=== PATIENT | female | born 1995 | race Caucasian/White ===

== ENCOUNTER → 2023-01-18 | Outpatient (CLI) | payer OTHER ==
[2023-01-18 13:57] LABS: HEMATOCRIT 34.5 % (36.0-47.0); MEAN CORPUSCULAR HEMOGLOBIN 29.5 pg (27.0-33.0); MEAN CORPUSCULAR HGB CONC 31.9 g/dl (32.0-36.5); MEAN CORPUSCULAR VOLUME 92.5 fl (80.0-96.0); PLATELET COUNT, AUTOMATED 216 10^3/uL (150-450); RED BLOOD COUNT 3.73 10^6/uL (4.00-5.40); WHITE BLOOD COUNT 9.3 10^3/uL (4.0-10.0)
[2023-01-18 15:54] LABS: GC DNA AMPLIFICATION NEGATIVE (NEGATIVE)
== END ==
LOC: M PLALAB 10:18
PROVIDERS: ATTEND Advanced Practice Midwife
DX: Z34.82 Encounter for supervision of other normal pregnancy, second trimester (principal)

== ENCOUNTER → 2023-01-30 | Outpatient (CLI) | payer OTHER | LOC: M WHC 08:23 → EDUNIT# 09:00 | PROVIDERS: ATTEND Advanced Practice Midwife | DX: Z34.82 Encounter for supervision of other normal pregnancy, second trimester (principal); Z3A.29 29 weeks gestation of pregnancy ==

== ENCOUNTER 2023-02-28 15:36 | Outpatient (CLI) | payer OTHER ==
[~2023-02-28] VITALS: Ht 162.6 cm; Wt 100.0 kg
[2023-02-28] MEDS ORDERED: ACET-683 PO (16:05)
[2023-02-28] MEDS ORDERED: PRENTAB9 PO (16:05)
[2023-02-28] MEDS ORDERED: PROZ20CA11 PO (16:06)
[2023-02-28 16:08] VITALS: BP 139/91
[2023-02-28] MEDS ORDERED: HOME MED LIST COMPLETE! XX SCH (16:10)
[2023-02-28 16:26] VITALS: BP 131/81
[2023-02-28] MEDS ORDERED: LACTATED RINGER'S 1000 ML IV STA (16:36)
[2023-02-28] MEDS ORDERED: LR 1,000 ML IV SCH (16:40)
[2023-02-28 17:34] LABS: HEMATOCRIT 33.6 % (36.0-47.0); HEMOGLOBIN 10.8 g/dl (12.0-15.5); MEAN CORPUSCULAR HEMOGLOBIN 27.9 pg (27.0-33.0); MEAN CORPUSCULAR HGB CONC 32.1 g/dl (32.0-36.5); MEAN CORPUSCULAR VOLUME 86.8 fl (80.0-96.0); PLATELET COUNT, AUTOMATED 229 10^3/uL (150-450); RED BLOOD COUNT 3.87 10^6/uL (4.00-5.40); WHITE BLOOD COUNT 8.6 10^3/uL (4.0-10.0)
[2023-02-28 18:02] LABS: ALBUMIN 2.7 G/DL (3.2-5.2); ALKALINE PHOSPHATASE 168 U/L (46-116); ALT/SGPT 25 U/L (7.0-40); AST/SGOT 16 U/L (<34); BILIRUBIN,TOTAL 0.3 MG/DL (0.3-1.2); BLOOD UREA NITROGEN 7 MG/DL (9-23); CALCIUM LEVEL 8.8 MG/DL (8.5-10.1); CARBON DIOXIDE LEVEL 22 MMOL/L (20-31); CHLORIDE LEVEL 105 MMOL/L (98-107); CREATININE FOR GFR 0.55 MG/DL (0.55-1.30); GLOMERULAR FILTRATION RATE > 60.0 (>60); GLUCOSE, FASTING 60 MG/DL (60-100); POTASSIUM SERUM 4.1 MMOL/L (3.5-5.1); SODIUM LEVEL 136 MMOL/L (136-145); TOTAL PROTEIN 6.4 G/DL (5.7-8.2)
[2023-02-28] MEDS ORDERED: ACETAMINOPHEN 500 MG TAB PO ONE (18:05)
== END 2023-02-28 18:25 | disposition home or self-care (01) ==
LOC: M LDO 15:36
PROVIDERS: ATTEND Specialist
DX: O26.893 Other specified pregnancy related conditions, third trimester (principal); R19.7 Diarrhea, unspecified; Z3A.33 33 weeks gestation of pregnancy
CPT/HCPCS: 59025; 80053; 85027; 96360; G0463

== ENCOUNTER → 2023-03-03 | Outpatient (CLI) | payer OTHER ==
[~2023-03-03] MED LIST: ACET-683 PO; PRENTAB9 PO; PROZ20CA11 PO
== END ==
LOC: M WHC 13:09
PROVIDERS: ATTEND Advanced Practice Midwife
DX: O99.213 Obesity complicating pregnancy, third trimester (principal); Z3A.34 34 weeks gestation of pregnancy

== ENCOUNTER 2023-03-21 18:43 | Outpatient (CLI) | payer OTHER ==
[~2023-03-21] VITALS: Ht 162.6 cm; Wt 99.5 kg
[2023-03-21 19:03] VITALS: BP 118/60
[2023-03-21 20:04] LABS: APPEARANCE, URINE HAZY (CLEAR); BACTERIA, URINE AUTO NEGATIVE (NEGATIVE); BILIRUBIN, URINE AUTO NEGATIVE (NEGATIVE); BLOOD, URINE BLOOD NEGATIVE (NEGATIVE); COLOR, URINE YELLOW (YELLOW); GLUCOSE, URINE (UA) AUTO NEGATIVE (NEGATIVE); KETONE, URINE AUTO TRACE mg/dL (NEGATIVE); LEUKOCYTE ESTERASE, URINE AUTO 1+ (NEGATIVE); MUCUS, URINE SMALL (NEGATIVE); NITRITE, URINE AUTO NEGATIVE (NEGATIVE); PROTEIN, URINE AUTO 1+ mg/dL (NEGATIVE); RBC, URINE AUTO 1 /HPF (0-3); SPECIFIC GRAVITY URINE AUTO 1.025 (1.002-1.035); SQUAMOUS EPITHELIAL CELL UR AU 4 /HPF (0-6); UROBILINOGEN, URINE AUTO 0.2 mg/dL (0.0-2.0); WBC, URINE AUTO 3 /HPF (0-3)
[2023-03-21] MEDS ORDERED: ACETAMINOPHEN 500 MG TAB PO ONE (21:20)
== END 2023-03-21 22:40 | disposition home or self-care (01) ==
LOC: M LDO 18:43
PROVIDERS: ATTEND Obstetrics & Gynecology
DX: O47.03 False labor before 37 completed weeks of gestation, third trimester (principal); O99.343 Other mental disorders complicating pregnancy, third trimester; F32.A Depression, unspecified; F43.10 Post-traumatic stress disorder, unspecified; Z88.8 Allergy status to other drugs, medicaments and biological substances; Z3A.36 36 weeks gestation of pregnancy
CPT/HCPCS: 59025; 76815; 76820; 81001; 87086; G0463

== ENCOUNTER → 2023-03-23 | Outpatient (REF) | payer SELFPAY ==
[~2023-03-23] MED LIST changes: +IBUP80TA PO
== END ==
LOC: M PLALAB 07:53
PROVIDERS: ATTEND Obstetrics & Gynecology
DX: Z34.93 Encounter for supervision of normal pregnancy, unspecified, third trimester (principal)

== ENCOUNTER 2023-04-08 15:57 | Inpatient (IN) | payer OTHER ==
[~2023-04-08] VITALS: Ht 162.6 cm; Wt 100.0 kg
[2023-04-08] VITALS (15 sets, daily range): BP systolic 120–161; BP diastolic 71–102
[~2023-04-08 15:57] MED LIST changes: -IBUP80TA PO
[2023-04-08] MEDS ORDERED: HOME MED LIST COMPLETE! XX SCH (16:20)
[2023-04-08] MEDS ORDERED: OXYTOCIN DRIP 30 UNITS in IV 1 EA IV SCH (18:20)
[2023-04-08] MEDS ORDERED: METHYLERGONOVINE MALEATE 0.2MG/ML 1ML VIAL IM PRN (18:20)
[2023-04-08] MEDS ORDERED: LR 1,000 ML IV SCH (18:20)
[2023-04-08] MEDS ORDERED: LIDOCAINE 1% MDV 20ML VIAL INFIL PRN (18:20)
[2023-04-08] MEDS ORDERED: PENICILLIN G POTASSIUM 5 MU IV 5 MU in D5W MINI-BAG PLUS 100 ML IV STA ×2 (18:20→19:06)
[2023-04-08] MEDS ORDERED: CARBOPROST TROMETHAMINE 250 MCG/ML AMP IM PRN (18:20)
[2023-04-08] MEDS ORDERED: LACTATED RINGER'S 1000 ML IV STA (18:20)
[2023-04-08] MEDS ORDERED: TRANEXAMIC ACID INJection 1,000 MG in NS 100 ML IV PRN (18:20)
[2023-04-08] MEDS ORDERED: OXYTOCIN DRIP 30 UNITS in IV 1 EA IV PRN (18:20)
[2023-04-08 19:16] LABS: HEMATOCRIT 33.6 % (36.0-47.0); HEMOGLOBIN 10.6 g/dl (12.0-15.5); MEAN CORPUSCULAR HEMOGLOBIN 26.4 pg (27.0-33.0); MEAN CORPUSCULAR HGB CONC 31.5 g/dl (32.0-36.5); MEAN CORPUSCULAR VOLUME 83.6 fl (80.0-96.0); PLATELET COUNT, AUTOMATED 268 10^3/uL (150-450); RED BLOOD COUNT 4.02 10^6/uL (4.00-5.40)
[2023-04-08] MEDS ORDERED: NALOXONE INJ 0.4MG/1ML VIAL IV PRN (20:05)
[2023-04-08] MEDS ORDERED: diphenhydrAMINE 50MG/ML VIAL IV PRN (20:05)
[2023-04-08] MEDS ORDERED: EPIDURAL/PCA KEYS XX PRN (20:05)
[2023-04-08] MEDS ORDERED: LR 500 ML IV PRN (20:05)
[2023-04-08] MEDS ORDERED: ePHEDrine SULFATE 25 MG/5 ML(5MG/ML) SYRINGE IVP PRN (20:05)
[2023-04-08] MEDS ORDERED: ONDANSETRON 4MG 2ML VIAL IV PRN (20:05)
[2023-04-08 20:10] LABS: HIV 1&2 SCREEN NEGATIVE (NEGATIVE)
[2023-04-08 20:13] LABS: TOTAL PROTEIN,RANDOM URINE 21.7 MG/DL (0.0-14.0)
[2023-04-08] MEDS: FENTANYL/ROPIVACAINE/NACL BAG 100 ML EPIDURAL SCH (20:14)
[2023-04-08 20:18] LABS: CREATININE,RANDOM URINE 135.8 MG/DL
[2023-04-08] MEDS ORDERED: **PENDING PCN ENTRY XX SCH (21:00)
[2023-04-08] MEDS ORDERED: PEN G POT 3,000,000 UNIT/50 ML 3,000,000 UNIT in IV 1 EA IV SCH (22:20)
[2023-04-08] MEDS: PEN G POT 3,000,000 UNIT/50 ML 3,000,000 UNIT in IV 1 EA IV SCH (23:19)
[2023-04-09] VITALS (34 sets, daily range): BP systolic 108–168; BP diastolic 53–95; O2SAT 96–97
[2023-04-09] MEDS: PEN G POT 3,000,000 UNIT/50 ML 3,000,000 UNIT in IV 1 EA IV SCH ×2 (03:28→07:29)
[2023-04-09] MEDS: FENTANYL/ROPIVACAINE/NACL BAG 100 ML EPIDURAL SCH (06:25)
[2023-04-09 12:16] LABS: CORD GAS ABE A -4.5; CORD GAS ABE V -4.3; CORD GAS HCO3 V 21.4 MMOL/L; CORD GAS O2 SAT A 81.7 %; CORD GAS O2 SAT V 81.9 %; CORD GAS PCO2 A 40.4 mmHg; CORD GAS PCO2 V 41.3 mmHg; CORD GAS PH A 7.334 UNITS; CORD GAS PH V 7.332 UNITS; CORD GAS PO2 A 36.3 mmHg; CORD GAS PO2 V 35.6 mmHg; CORD GAS SBC A 20.4 MMOL/L; CORD GAS SBC V 20.6 MMOL/L; CORD GAS TCO2 A 22.3 MMOL/L; CORD GAS TCO2 V 22.7 MMOL/L
[2023-04-09] MEDS ORDERED: DIBUCAINE 1% OINTMENT 30GM TOP PRN (12:40)
[2023-04-09] MEDS ORDERED: ONDANSETRON 4MG 2ML VIAL IV PRN (12:40)
[2023-04-09] MEDS ORDERED: DOCUSATE SODIUM 100MG CAPSULE PO PRN (12:40)
[2023-04-09] MEDS ORDERED: ANUSOL HC CREAM 30GM TOP PRN (12:40)
[2023-04-09] MEDS ORDERED: RHOGAM 300MCG (1500IU) INJ IM SCH (12:40)
[2023-04-09] MEDS ORDERED: IBUPROFEN 600MG TAB PO PRN (12:40)
[2023-04-09] MEDS ORDERED: OXYTOCIN DRIP 30 UNITS in IV 1 EA IV SCH (12:40)
[2023-04-09] MEDS ORDERED: ACETAMINOPHEN TAB 650MG DOSE (2X325MG) PO PRN (12:40)
[2023-04-09] MEDS ORDERED: ceFAZolin SOD 2 GM in IV 1 EA IV ONE (12:45)
[2023-04-09] MEDS: LR 1,000 ML IV SCH ×3 (13:00→21:46)
[2023-04-09] MEDS ORDERED: OXYTOCIN 30UNITS IN 0.9% NaCl 500ML IV BAG As Ordered ONE (15:11)
[2023-04-09] MEDS: IBUPROFEN 800 MG TAB PO PRN (15:25)
[2023-04-09] MEDS: ACETAMINOPHEN 500 MG TAB PO PRN (19:00)
[2023-04-09] MEDS: FLUoxetine 20MG CAP PO SCH (19:01)
[2023-04-10] MEDS: IBUPROFEN 800 MG TAB PO PRN ×2 (01:14→09:07)
[2023-04-10] MEDS: ACETAMINOPHEN 500 MG TAB PO PRN (03:45)
[2023-04-10 06:00] VITALS: BP 115/70; O2SAT 97
[2023-04-10] MEDS ORDERED: PRENATAL VITAMINS CHEWABLE TABLET PO SCH (09:00)
[2023-04-10] MEDS: FLUoxetine 20MG CAP PO SCH ×2 (09:00→09:07)
[2023-04-10] MEDS: LR 1,000 ML IV SCH (12:40)
[2023-04-10] MEDS ORDERED: IBUP80TA PO (13:07)
[2023-04-10] MEDS ORDERED: ACET-683 PO (13:07)
[2023-04-11] MEDS ORDERED: MEASLES,MUMPS,RUBELLA VACCINE INJ (MMR-II) SC.IMMUN ONE (09:00)
== END 2023-04-10 15:45 | disposition home or self-care (01) | DRG 807 ==
LOC: M LDO 15:57 → M LDI 18:12 → M OBS 04-09 15:10
PROVIDERS: ADMIT Obstetrics & Gynecology; ATTEND Obstetrics & Gynecology
PROC: 10D07Z3 Extraction of Products of Conception, Low Forceps, Via Natural or Artificial Opening (ICD-10-PCS; principal; 2023-04-09)
PROC: 0KQM0ZZ Repair Perineum Muscle, Open Approach (ICD-10-PCS; 2023-04-09)
PROC: 10907ZC Drainage of Amniotic Fluid, Therapeutic from Products of Conception, Via Natural or Artificial Opening (ICD-10-PCS; 2023-04-09)
DX: O99.344 Other mental disorders complicating childbirth (principal); Z37.0 Single live birth; F43.10 Post-traumatic stress disorder, unspecified; F32.A Depression, unspecified; O99.824 Streptococcus B carrier state complicating childbirth; Z79.899 Other long term (current) drug therapy; Z88.2 Allergy status to sulfonamides; Z88.8 Allergy status to other drugs, medicaments and biological substances; Z91.018 Allergy to other foods; Z91.048 Other nonmedicinal substance allergy status; Z3A.39 39 weeks gestation of pregnancy; O70.1 Second degree perineal laceration during delivery; O64.0XX0 Obstructed labor due to incomplete rotation of fetal head, not applicable or unspecified; O75.81 Maternal exhaustion complicating labor and delivery

== ENCOUNTER → 2024-11-01 | Outpatient (CLI) | payer OTHER ==
[~2024-11-01] MED LIST changes: +IBUP80TA PO
== END ==
LOC: M SOG 07:50
PROVIDERS: ATTEND Orthopaedic Surgery
DX: M79.671 Pain in right foot (principal); M25.571 Pain in right ankle and joints of right foot; S92.354B Nondisplaced fracture of fifth metatarsal bone, right foot, initial encounter for open fracture

== ENCOUNTER → 2024-12-26 | Outpatient (CLI) | payer OTHER | LOC: M SOG 07:52 | PROVIDERS: ATTEND Orthopaedic Surgery | DX: S92.351A Displaced fracture of fifth metatarsal bone, right foot, initial encounter for closed fracture (principal); M79.671 Pain in right foot; W18.30XA Fall on same level, unspecified, initial encounter; Y92.009 Unspecified place in unspecified non-institutional (private) residence as the place of occurrence of the external cause ==